=== PATIENT | female | born 1990 | race Caucasian/White ===

== ENCOUNTER 2020-06-16 23:44 | Emergency (ER) | payer BC ==
[~2020-06-16] VITALS: Ht 157.5 cm; Wt 46.0 kg
[~2020-06-16 23:44] MED LIST: CETI10CA PO; CYPR4TAB36 PO; METR500T PO; PREN1TAB60 PO; RANI-467 PO
--- NOTE | 2020-06-17 00:06 | NUR ---
PT DEEPAK BENNETT, TO ROOM 39, PT IS SOBBING AT THIS TIME, INTOXICATED, AND HAVING EMESIS. PT HAS 20G PIV TO RIGHT FOREARM, FLUSHED EASILY AND IVF 1000ML HUNG TO RUN OVER 2 HOURS. PT A&OX4, BUT CRYING, DOES ANSWER QUESTIONS, AND PLACED ON CR MONITOR.
[2020-06-17 00:25] LABS: BASOPHILS % (AUTO) 1 % (0-1); EOSINOPHILS % (AUTO) 1 % (1-7); LYMPHOCYTES % (AUTO) 16 % (22-44); MEAN CORPUSCULAR HEMOGLOBIN 30.6 pg (27.0-34.8); MEAN PLATELET VOLUME 8.3 fL (7.4-10.4); MONOCYTES % (AUTO) 2 % (2-9); NEUTROPHILS % (AUTO) 80 % (42-75); PLATELET COUNT 343 x10^3/uL (130-400); RED BLOOD COUNT 4.24 x10^6/uL (3.82-5.3); RED CELL DISTRIBUTION WIDTH 13.4 % (9.6-15.2)
[2020-06-17] MEDS ORDERED: SODIUM CHLORIDE 0.9% 1,000ML IVBOLUS ONE (00:30)
[2020-06-17] MEDS ORDERED: SODIUM CHLORIDE FLUSH 10ML SYR IVF ONE (00:30)
[2020-06-17 00:31] LABS: MD NO
[2020-06-17 00:32] LABS: ALANINE AMINOTRANSFERASE 10 U/L (12-78); ALBUMIN 3.8 g/dL (3.4-5.0); ANION GAP 9 mmol/L (5-15); CALCIUM 7.9 mg/dL (8.5-10.1); CHLORIDE 114 mmol/L (98-107); CREATININE 0.55 mg/dL (0.55-1.02)
[2020-06-17 00:36] LABS: ALKALINE PHOSPHATASE 34 U/L (45-117); BILIRUBIN,TOTAL 0.1 mg/dL (0.2-1.0); TOTAL PROTEIN 7.3 g/dL (6.4-8.2)
--- NOTE | 2020-06-17 00:47 | NUR ---
ORDERS RECEIVED FOR LABS, AND UDS, AND ALSO 1 LITER NS STARTED, PER MD ORDER. SEE EMAR. PT RESTING IN BED, ON CR MONITOR.
[2020-06-17 00:57] LABS: SALICYLATE LEVEL 1.7 mg/dL (2.8-20.0)
--- NOTE | 2020-06-17 01:35 | NUR ---
PT HAS SITTER OUTSIDE OF ROOM.
--- NOTE | 2020-06-17 02:21 | NUR ---
NO CHANGE IN STATUS, PT SLEEPING IN BED, ON CR MONITOR, GOOD AIRWAY AND GOOD AERATION AND OXYGENATION. IVF COMPLETE.
--- NOTE | 2020-06-17 03:42 | NUR ---
PT AWAKENS EASILY AND IS ORIENTED X4. PT SLEEPY AND NOW RESTING WITHOUT ISSUE, ON CR MONITOR. UNABLE TO URINATE YET, BUT PT UNDERSTANDS WE NEED A SAMPLE, AND AGREED TO LET US KNOW WHEN SHE NEEDS TO GO TO RESTROOM. SITTER REMAINS AT ENTRY TO ROOM.
[2020-06-17] MEDS ORDERED: KETOROLAC 30 MG/1 ML ONE (03:57)
[2020-06-17] MEDS ORDERED: KETOROLAC 30 MG/1 ML IVPush ONE (04:00)
--- NOTE | 2020-06-17 04:04 | NUR ---
PT C/O MIGRAINE AND ASKED FOR PAIN MEDS. STATES SHE FEELS LIKE PUKING WHEN SHE TAKES IMETRIX, BUT THAT TORADOL WORKS. PA TO ORDER DOSE OF TORADOL FOR PTS MIGRAINE. PT A&OX4, GROGGY, AND ABLE TO WALK ON HER OWN TO RESTROOM. PROVIDED URINE SAMPLE FOR LAB TESTS. PT BACK IN BED, ON CR MONITOR, AND SIDE RAILS UP X2, AND CALL LIGHT WITHIN REACH.
[2020-06-17 04:15] LABS: AMPHETAMINE SCREEN, URINE Negative (Negative); BARBITURATE SCREEN, URINE Negative (Negative); BENZODIAZEPINE SCREEN, URINE Negative (Negative); CANNABINOID SCREEN, URINE Negative (Negative); COCAINE SCREEN, URINE Negative (Negative); METHADONE SCREEN, URINE Negative (Negative); OPIATE SCREEN, URINE Negative (Negative)
--- NOTE | 2020-06-17 04:20 | NUR ---
PA TO BEDSIDE TO EVAL PT, NOW THAT SHE'S AWAKE AND TALKING. PT ON HER CELL PHONE TALKING.
--- NOTE | 2020-06-17 04:20 | NUR ---
TELEPSYCH TO THE ROOM.
--- NOTE | 2020-06-17 05:11 | NUR ---
TELEPSYCH TO ROOM WHEN PT SOBER AT 0.08. CURRENT BREATHALYZER WAS 0.13 PT IS AWARE AND UNDERSTANDS. PT CONTINUES TO CALL PEOPLE ON THE PHONE INCLUDING PEOPLE AT THE [employer] WHERE THE ENCOUNTER THAT MADE HER HAVE THIS ISSUE OCCURRED. PT WAS ASKED TO REST COMFORTABLY AND NOT LET THOSE THINGS WIND HER UP, BUT SHE CONTINUES OF HER OWN FREE WILL. SITTER AT THE DOOR.
--- NOTE | 2020-06-17 06:33 | NUR ---
PT SLEEPING AT THIS TIME ON CR MONITOR, AND GOOD AIRWAY AND GOOD AERATION. NO DISTRESS AT THIS TIME. SIDERAILS UP X2. SITTER AT DOORWAY WITH EYES ON PT. AWAITING PT SOBRIETY TO CONDUCT TELEPSYCH INTERVIEW.
--- NOTE | 2020-06-17 06:48 | NUR ---
REPORT AND CARE TO DAY SHIFT RN.
--- NOTE | 2020-06-17 06:59 | NUR ---
took over care for patient, patient resting in bed, easily rousable, vss, nadn, blew 0.094, sitter at bedside.
--- NOTE | 2020-06-17 07:07 | NUR ---
patient belongings labeled and placed in patient belongings bag and placed in locked patient locker.
--- NOTE | 2020-06-17 08:04 | NUR ---
patient now a BAL of 0.067. when asked if she had thoughts of hurting herself or other she stated no, and when asked if she had plans of hurting herself or other she stated no. patient also stated that we are allowed to give info to her Victorino. vss. hutton.
--- NOTE | 2020-06-17 08:10 | NUR ---
with permission from patient, update given to Victorino, patients .
--- NOTE | 2020-06-17 09:04 | NUR ---
PATIENT REMAINS ALSEEP WITH SITTER AT BEDSIDE. SI DIET TRAY ORDERED. AWAITING TELE PSYCH CONSULT
--- NOTE | 2020-06-17 09:22 | NUR ---
patient remains asleep, breakfast tray given, vss, nadn. awaiting tele psych. sitter at bedside.
--- NOTE | 2020-06-17 10:09 | NUR ---
PT AWAKE, COURTNEY TINSLEY AT BEDSIDE FOR PSYH EVALUATION. PATIENT STATING SHE IS "NOT SUICIDAL, I WOULD NEVER DO THAT"
[2020-06-17 10:53] VITALS: BP 114/54
--- NOTE | 2020-06-17 10:54 | NUR ---
patient to be d/c personal belongings given back to patient.
--- NOTE | 2020-06-17 11:20 | NUR ---
Patient/Caregiver given discharge instructions and they have confirmed that they understand the instructions. Patient ambulatory with steady gait.
== END 2020-06-17 11:22 | disposition home or self-care (01) ==
LOC: ED 06-17 08:01
DX: F10.120 Alcohol abuse with intoxication, uncomplicated (principal); F32.0 Major depressive disorder, single episode, mild; R11.2 Nausea with vomiting, unspecified; Z72.9 Problem related to lifestyle, unspecified; Y90.0 Blood alcohol level of less than 20 mg/100 ml
CPT/HCPCS: 36415; 80053; 80299; 80307; 80320; 83690; 84703; 85025; 96361; 96374; 99285; J1885; J7030; 80329; G0480